=== PATIENT | female | born 1990 | race Caucasian/White ===

== ENCOUNTER 2021-09-26 10:15 | Emergency (ER) | payer BC, SELFPAY ==
[2021-09-26 10:21] VITALS: BP 130/84; PULSE 73; RESP 12; TEMP 36.4; O2SAT 100
--- NOTE | 2021-09-26 10:26 | ED.FEMALEGU ---
HPI - Female Genitourinary General Chief complaint: Urogenital-Female Stated complaint: Urinary pain Source: patient and RN notes reviewed Mode of arrival: ambulatory Limitations: no limitations History of Present Illness HPI Narrative: 31 y/o female presented for complaint of UTI symptoms over the past 5 days. She endorses dysuria, frequency, urgency, and hematuria. She also endorses constant pressure. She has not taken anything for symptoms. She endorses a history of UTIs for which she was taking daily nitrofurantoin. Since having kids in the last 3 years to UTIs decreased, however she has had 2 in the last 4 months again. Denies nausea, vomiting, diarrhea, flank pain, fever or chills. Related Data Home Medications Medication Instructions Recorded Confirmed levothyroxine 50 mcg PO DAILY 09/26/21 09/26/21 Allergies Allergy/AdvReac Type Severity Reaction Status Date / Time No Known Allergies Allergy Verified 09/26/21 10:24 Review of Systems Review of Systems: CONSTITUTIONAL: Denies body aches, fever, chills, or sweats. CARDIOVASCULAR: Denies chest pain, palpitations, or edema. RESPIRATORY: Denies cough or dyspnea. GASTROINTESTINAL: Denies abdominal pain, nausea, vomiting, or diarrhea. GENITOURINARY: Reports dysuria, frequency, urgency, hematuria, denies flank pain SKIN: Denies rash, itching, or wounds. MUSCULOSKELETAL: Denies back pain or myalgia. [facility] Social History Social History Gender identity (if verbalized by the patient): Female Comments At time of signature, I have reviewed and agree with nursing past medical, surgical, social and family history unless otherwise noted. Please see nursing chart for further information. There is no relevant family history pertinent to the presenting complaint Exam Narrative: GENERAL: Well-appearing and in no acute distress. HEAD: Normocephalic EYES: EOMI. . ENT: Mucous membranes pink and moist. NECK: Normal AROM. Supple. CHEST: No respiratory distress. Clear to auscultation. HEART: Regular rate and rhythm. ABDOMEN: Soft, nontender, nondistended, normal active bowel sounds. No CVA tenderness MUSCULOSKELETAL: No bony tenderness. SKIN: Warm, dry, no rash. NEURO: No focal deficits. Alert and oriented x3. Gait steady. PSYCH: Normal affect. No signs of depression or anxiety. Course Course Emergency Course: Patient is aware of diagnosis, understands and agrees to treatment plan. Anticipatory guidance given. Patient agrees to follow-up as directed and is aware of reasons to seek care at the emergency department. Portions of this record may have been created with voice recognition software Level of Care: Express Care Visit Vital Signs Vital signs: Reviewed MDM - Female Genitourinary MDM Narrative Medical decision making narrative: Urine shows hematuria; no acute concerns on exam findings. She states with her history of UTIs Macrobid worked well for her in the past. Declines Pyridium. She plans to follow-up with her [facility] [employer] [employer]. Patient is non-toxic appearing and is in no distress. Appropriate for treatment of UTI as outpt. Differential Diagnosis Differential diagnosis: Likely urinary tract infection, cervicitis and cystitis Lab Data Attestation: I reviewed the patient's lab results. Discharge Plan Discharge Clinical Impression: Dysuria Patient Disposition: Home, Self-Care Condition: Stable Instructions: Antibiotic Form Additional Instructions: Take the antibiotic as prescribed until gone. Drink plenty of water The urine will be sent of for a culture to identify what type of bacteria is causing your infection. If the culture shows that the antibiotic will not get rid of your infection, you will be notified and a new antibiotic will be called in for you. you will need to follow up with your PCP for further evaluation and treatment if symptoms persist. Follow-up with your [facility] [employer]
== END 2021-09-26 10:40 | disposition home or self-care (01) ==
PROVIDERS: Emergency Provider Nurse Practitioner Family; PCP Nurse Practitioner
DX: R30.0 Dysuria (principal); E05.90 Thyrotoxicosis, unspecified without thyrotoxic crisis or storm
CPT/HCPCS: 81003; 87086; 99213; G0463

== ENCOUNTER 2021-10-10 10:19 | Emergency (ER) | payer BC, SELFPAY ==
[2021-10-10 10:28] VITALS: BP 125/73; PULSE 79; RESP 16; TEMP 36.6; O2SAT 97
--- NOTE | 2021-10-10 10:36 | ED.URI ---
HPI - URI/Sore Throat General Chief Complaint: Upper Respiratory Infection Stated Complaint: sinus congestion Time Seen by Provider: 10/10/21 10:36 Source: patient, RN notes reviewed and old records reviewed Mode of arrival: ambulatory Limitations: no limitations History of Present Illness HPI Narrative: 31 year old female accompanied by 2 young children presents to express care with complaints of 4 week duration of sinus congestion and drainage and some cough. She states that her symptoms seemed to get better for a few days and then have progressively gotten worse. Patient reports that she has been taking Mucinex and also has tried antihistamines with no improvement in her symptoms. Patient reports no ear pain, states pain to facial sinus regions especially on the right. She states that her nasal discharge has become yellow in color and thicker in consistency. Patient denies any shortness of breath or any wheezing, cough is intermittent and dry. Patient states that she has had COVID vaccinations and also flu shot this season, reports she has taken home COVID tests which have been negative. MD elicited complaint: rhinorrhea, nasal congestion and sinus pain Onset (ago): week(s) (4) Consistency: progressively worsening Description of mucous: yellow Able to tolerate fluids by mouth: Yes Treatments prior to arrival: other (mucinex and antihistamine) Related Data Home Medications Medication Instructions Recorded Confirmed levothyroxine 50 mcg PO DAILY 09/26/21 09/26/21 Allergies Allergy/AdvReac Type Severity Reaction Status Date / Time No Known Allergies Allergy Verified 09/26/21 10:24 Review of Systems Review of Systems: CONSTITUTIONAL: Denies fever, chills, or sweats. EYES: Denies visual changes, redness, or discharge. ENT: Positive for rhinorrhea, congestion, no sore throat, no otalgia, positive for facial pressure CARDIOVASCULAR: Denies chest pain, palpitations, or edema. RESPIRATORY: Positive for dry cough denies dyspnea. GASTROINTESTINAL: Denies abdominal pain, nausea, vomiting, or diarrhea. GENITOURINARY: Denies dysuria or hematuria. SKIN: Denies rash or itching. MUSCULOSKELETAL: Denies back pain, joint pain, or myalgia. NEUROLOGIC: Denies headache, numbness, or weakness. PSYCHIATRIC: Denies anxiety or depression. All systems reviewed & are unremarkable except as noted in HPI and below PMFSH Past Medical History Medical History (Updated 10/10/21 @ 10:48 by Brittnee Dowell NP) Hypothyroid Surgical History Surgical History (Updated 10/10/21 @ 10:47 by Brittnee Dowell NP) History of tonsillectomy Social History Social History (Updated 10/10/21 @ 10:47 by Brittnee Dowell NP) Smoking status: Never smoker Alcohol intake: current Alcohol use details: social Substance use: never Living arrangements: with family Gender identity (if verbalized by the patient): Female Comments At time of signature, agree with nursing past medical, surgical, social and family history. There is no relevant family history pertinent to the presenting complaint Exam Narrative: GENERAL: Well-appearing, well-nourished, and in no acute distress. HEAD: Normocephalic, atraumatic. EYES: PERRLA and EOMI. ENT: Nares red and turbinates swollen light yellow rhinorrhea no epistaxis. Mucous membranes moist.TM's normal with dull light reflex, throat red with no lesions or exudates, tonsils absent, post nasal drainage present NECK: Supple.no lymphadenopathy CHEST: Clear to auscultation. No respiratory distress.SAO2 97% on room air, no tachypnea or accessory muscle use HEART: Regular rate and rhythm. No murmur heard. Normal peripheral pulses. ABDOMEN: Soft, nontender, nondistended, normal active bowel sounds. EXTREMITIES: Normal range of motion. No edema. SKIN: Warm, dry, no rash. NEURO: No focal deficits. Alert and oriented x3. Course Course Level of Care: Express Care Visit Vital Signs Vital signs: Vital Signs
== END 2021-10-10 10:54 | disposition home or self-care (01) ==
PROVIDERS: Emergency Provider Registered Nurse; PCP Obstetrics & Gynecology Gynecology
DX: J01.40 Acute pansinusitis, unspecified (principal); E03.9 Hypothyroidism, unspecified
CPT/HCPCS: 99213; G0463

== ENCOUNTER → 2022-01-09 12:39 | Outpatient (CLI) | payer BC, SELFPAY ==
--- NOTE | ~2022-01-09 | US_ITS ---
EXAMINATION: US OB <= 14 weeks fetus INDICATION: N91.2 - Amenorrhea, unspecified . Dating. TECHNIQUE: Sonography of the pelvis was performed by transabdominal and transvaginal techniques. COMPARISON: None. RESULT: LMP 11/20/2021. Gestational age by LMP 7 weeks 1 day. OSCAR by LMP 08/27/2021. Uterus: - Orientation: Anteverted - Size: 7.6 x 5.7 x 5.8 cm - Myometrium: homogeneous echogenicity Gestation: - Intrauterine gestational sac: Single present - Mean Sac Diameter: cm, corresponding gestational age week days - Yolk sac: Present. - Embryo: Single present - Steen rump length: 0.8 cm, corresponding gestational age 6 weeks, 5 days -Gestational heart rate: present 141 bpm -Subgestational hematoma: Absent Right ovary: Not visualized. No adnexal abnormality. Left ovary: Not visualized. No adnexal abnormality. Pelvis free fluid: None. IMPRESSION: Single, live intrauterine gestation. Estimated Gestational Age: 6 weeks, 5 days by crown rump length. OSCAR by ultrasound 08/27/2022. Reviewed, dictated and finalized at location K. IMPRESSION: Single, live intrauterine gestation. Estimated Gestational Age: 6 weeks, 5 days by crown rump length. OSCAR by ultras ound 08/27/2022.
== END ==
PROVIDERS: PCP Student in an Organized Health Care Education/Training Program; Visit Provider Student in an Organized Health Care Education/Training Program
DX: Z34.91 Encounter for supervision of normal pregnancy, unspecified, first trimester (principal); Z3A.01 Less than 8 weeks gestation of pregnancy
CPT/HCPCS: 76801

== ENCOUNTER 2022-08-10 14:42 | Outpatient (RCR) | payer BC, SELFPAY ==
[2022-08-10 15:25] VITALS: BP 118/72; PULSE 83
== END 2022-09-09 19:44 | disposition home or self-care (01) ==
LOC: ANHOBOP 14:42
PROVIDERS: Visit Provider Obstetrics & Gynecology
DX: O36.8330 Maternal care for abnormalities of the fetal heart rate or rhythm, third trimester, not applicable or unspecified (principal); Z3A.37 37 weeks gestation of pregnancy
CPT/HCPCS: 59025

== ENCOUNTER 2022-08-19 20:32 | Outpatient (CLI) | payer BC, SELFPAY ==
[2022-08-19 21:02] VITALS: BP 130/83; PULSE 72
[2022-08-19 21:23] VITALS: BP 130/83; PULSE 71
== END 2022-08-19 21:15 | disposition home or self-care (01) ==
LOC: ANHOBOP 20:35 → ANHLDR 08-29 06:23
PROVIDERS: Visit Provider Obstetrics & Gynecology
DX: O36.8910 Maternal care for other specified fetal problems, first trimester, not applicable or unspecified (principal); Z3A.00 Weeks of gestation of pregnancy not specified
CPT/HCPCS: 59025; 99199

== ENCOUNTER 2022-08-20 08:13 | Inpatient (IN) | payer BC, SELFPAY ==
[2022-08-20] VITALS (53 sets, daily range): BP systolic 45–152; BP diastolic 19–107; PULSE 69–133; RESP 16–18; TEMP 36.2–37.1; O2SAT 99–100; BMI 28.0
--- NOTE | 2022-08-20 09:06 | WPDANESEPP ---
Anes - Eval Pre Procedure Procedure: Labor Pain Management Date/Time: 08/20/22 09:06 Surgeon: Xochitl Preop Diagnosis: Pain during labor Pre Op Diagnosis: Labor Patient Data Age: 32 Gender: F Height: Weight: Allergies Allergy/AdvReac Type Severity Reaction Status Date / Time No Known Allergies Allergy Verified 08/17/22 12:40 Home Medications Medication Instructions Recorded Confirmed Type levothyroxine 50 mcg tablet 50 mcg PO DAILY 09/26/21 08/10/22 History prenat.vits,allison,[id number] 1 tablet PO HS 08/03/22 08/10/22 History Patient hx anesthesia problems: none Family hx anesthesia problems: none Results Review: All pre-operative results and documents have been reviewed as part of the pre-operative evaluation. 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
[2022-08-20 09:12] LABS: Basophils Percent Auto 0.2 % (0.2-1.2); Eosinophils Absolute Auto 0.1 K/mm3 (0-0.3); Eosinophils Percent Auto 0.6 % (0-4.4); Hematocrit 37.8 % (37.0-47.0); Hemoglobin 13.3 g/dL (12.0-15.0); Immature Granulocyte Absolute 0.05 K/mm3 (0.00-0.031); Immature Granulocyte Percent A 0.6 % (0-0.5); Lymphocytes Absolute Auto 1.44 K/mm3 (0.9-3.2); Lymphocytes Percent Auto 16.3 % (18.3-44.2); Mean Corpuscular HGB Conc 35.2 g/dl (32-36); Mean Corpuscular Hemoglobin 31.9 pg (26-34); Mean Corpuscular Volume 90.6 fl (80-100); Mean Platelet Volume 10.7 fl (7.4-10.4); Monocytes Absolute Auto 0.4 K/mm3 (0.1-0.6); Monocytes Percent Auto 4.8 % (2.6-8.5); Neutrophils Absolute Auto 6.9 K/mm3 (1.3-6.7); Neutrophils Percent Auto 77.5 % (45.5-73.1); Platelet Count Result 232 k/mm3 (150-375); Red Blood Count 4.17 M/mm3 (4.2-5.4); Red Cell Distribution Width 12.8 % (11.5-14.5); White Blood Count 8.8 K/mm3 (4.5-10.0)
[2022-08-20] MEDS: LACTATED RINGERS 1,000 ML 125 ML IV CONT ×2 (09:21→10:08)
--- NOTE | 2022-08-20 09:25 | LDADM ---
This patient, Gerson Rich, was admitted to Labor/Delivery/Recovery 105 on 08/20/22 at 08:13. Plans for labor, pain management and were discussed with patient. Patient/family oriented to hospital policies and general routines including ID bracelet, bed and alarms, visiting hours, pain management, procedures, bathroom and other care routines, personal items, smoking policy, room service/diet and guest tray routines, security routines, and visiting hours. Patient/Family are encouraged to report perceived risks to care and to ask questions if they do not understand what they are told or what they should do. See OBIX for further documentation.
[2022-08-20] MEDS: OXYTOCIN 30 UNITS/NS 500 ML 30 UNITS/500 ML BAG 999 UNITS IV CONT (14:39)
--- NOTE | 2022-08-20 14:42 | PM.IMHP ---
H&P: HPI History of Present Illness Date/Time: 08/20/22 14:42 Chief Complaint: Contractions Narrative: She is a at 39 weeks by LMP with an EDC of 08/27/22 c/w 6 week ultrasound. PNC significant for hypothyroidism, stable on medication. She presented with contractions regular at approximately 7. She had changed her cervix to 4 from the previous evening. She was admitted for labor. Labs reviewed. GBS neg. Review of Systems Review of Systems: All systems reviewed & are unremarkable except as noted in HPI and below Constitutional: Constitutional: Reports no additional constitutional complaints and Denies headache(s) Eyes: Eyes: Denies spots in vision ENT: Reports system reviewed and no additional complaints, except as documented and Denies headache(s) Cardiovascular: Cardiovascular: Denies chest pain and Denies dyspnea Respiratory: Respiratory: Denies dyspnea Gastrointestinal: Gastrointestinal: Reports no additional gastrointestinal complaints Genitourinary: Genitourinary: Reports amenorrhea Musculoskeletal: Musculoskeletal: Reports no additional musculoskeletal complaints Integumentary/Breasts: Skin/Breast: Denies breast mass and Denies rash Neurologic: Denies headache(s) Psychiatric: Psychiatric: Reports no additional psychiatric complaints [facility] Past Medical History 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 Hypothyroid Pain during labor Surgical History Surgical History History of colposcopy History of tonsillectomy Family History Family History Sibling Depression Anxiety Mother Disorder of thyroid Social History Social History Smoking status: Never smoker Alcohol intake: former Alcohol use details: social Substance use: never Lack of Transportation: No Lack of Food: Never True Current Housing: I Have Housing Concerned About Future Housing: No Difficulty Paying Gas/Electric Bills: No Difficulty Paying for Meds: No Currently Unemployed: No Education: Bachelor's Degree Difficulty w/ Childcare or Family Care: No Living arrangements: with family Gender identity (if verbalized by the patient): Female Spiritual care concerns: No Meds Home Medications and Allergies Home Medications Medication Instructions Recorded Confirmed Type levothyroxine 50 mcg tablet 50 mcg PO DAILY 09/26/21 08/20/22 History prenat.vits,allison,[id number] 1 tablet PO HS 08/03/22 08/20/22 History Allergies Allergy/AdvReac Type Severity Reaction Status Date / Time No Known Allergies Allergy Verified 08/17/22 12:40 Vital Signs Vital Signs - 24 hr 08/20/22 09:23 08/20/22 09:31 08/20/22 09:51 Temperature Pulse Rate 91 Blood Pressure 128/79 Pulse Oximetry 99 Oxygen Delivery Room Air 08/20/22 09:57 08/20/22 09:58 08/20/22 09:59 Temperature Pulse Rate 79 75 Blood Pressure 122/77 115/77 Pulse Oximetry 100 Oxygen Delivery 08/20/22 10:01 08/20/22 10:02 08/20/22 10:05 Temperature Pulse Rate 82 83 Blood Pressure 123/78 132/64 Pulse Oximetry 100 Oxygen Delivery 08/20/22 10:06 08/20/22 10:07 08/20/22 10:09 Temperature Pulse Rate 84 82 89 Blood Pressure 120/68 120/64 126/65 Pulse Oximetry 99 Oxygen Delivery 08/20/22 10:10 08/20/22 10:10 08/20/22 10:11 Temperature Pulse Rate 84 Blood Pressure 119/66 Pulse Oximetry 100 100 99 Oxygen Delivery 08/20/22 10:13 08/20/22 10:15 08/20/22 10:16 Temperature Pulse Rate 89 83 Blood Pressure 152/107 H 112/64 Pulse Oximetry 100 Oxygen Delivery 08/20/22 10:17 08/20/22 09:00 08/20/22 10:19 Temperature 98.2 F Pulse Rate 80 77 Blood Pressure 113/61 116/65 Pulse Oximetry
--- NOTE | 2022-08-20 14:50 | PM.OBPNLAB ---
Pain Control Date/time seen: 08/20/22 14:50 Comments: FHT 125-130 Cat 2 AROM forebag clear. C/C/+1.
--- NOTE | 2022-08-20 15:15 | PM.OBPRVD ---
OB - Delivery Note Procedure Delivery date: 08/20/22 Procedure: Spontaneous vaginal delivery Events: Other (Hypothyroidism) Induction method: None Delivery monitor: External FHT Route of delivery: Laceration Description: Perineal - 1st Degree and Labial (right upper) Delivery repair: vicryl (3.0 vicryl) Specimen: No Quantitative Blood Loss (ml): 150 Anesthesia type: Epidural Disposition: Floor Complications: None Baby Date of : 08/20/22 Time of : 14:55 Weeks of gestation at delivery: 39 gender: Male Weight (pounds): 7 Weight (ounces): 10 presentation: vertex position: Left Occiput Anterior Placenta delivery description: Spontaneous Cord Vessel Description: 3 Vessels, Clamped/Cut and Delayed Cord Clamping score one minute: 9 score five minutes: 9 AMG Delivery Billing Delivery Delivery: Delivery Charge
[2022-08-20] MEDS: OXYTOCIN 30 UNITS/NS 500 ML 30 UNITS/500 ML BAG 125 UNITS IV CONT (15:34)
[2022-08-20] MEDS: WITCH HAZEL 40 PADS 1 PAD TOPICAL (15:34)
[2022-08-20] MEDS: BENZOCAINE 20% AER SPR (*SP) 56 GM CAN 1 SPRAY TOPICAL (15:35)
--- NOTE | 2022-08-20 20:26 | OBPPTRN ---
08/20/2022 at 1910 Patient transferred to first floor post room #111. Support person present. Patient and significant other oriented to unit, room, information board, rooming in, admission packet and security measures. Parents verbalizes understanding.
[2022-08-20] MEDS: IBUPROFEN 600 MG TABLET PO (21:30)
[2022-08-21 03:55] VITALS: BP 121/79; PULSE 79; RESP 16; TEMP 36.2
[2022-08-21 04:19] LABS: Hematocrit 35.7 % (37.0-47.0); Hemoglobin 12.3 g/dL (12.0-15.0)
[2022-08-21 08:30] VITALS: BP 136/63; PULSE 80; PULSE 95; RESP 16; RESP 18; TEMP 36.5; O2SAT 97; O2SAT 98
[2022-08-21] MEDS: DOCUSATE SODIUM 100 MG CAPSULE PO (08:30)
[2022-08-21] MEDS: LEVOTHYROXINE SODIUM 50 MCG TABLET PO (08:30)
[2022-08-21] MEDS: IBUPROFEN 600 MG TABLET PO (09:40)
--- NOTE | 2022-08-21 11:38 | PC.NURSE ---
1030 - Primary RN reported that mother does not request assistance with at this time and is independently .
[2022-08-21 12:15] VITALS: BP 119/70; PULSE 80; RESP 16; TEMP 37; O2SAT 98
[2022-08-21 12:19] LABS: Rapid Plasma Reagin Non-Reactive (NonReactive)
[2022-08-21 12:31] VITALS: PULSE 80; RESP 16; O2SAT 98
--- NOTE | 2022-08-21 16:59 | PC.NURSE ---
Patient was given the opportunity to view the discharge video Mother & Baby Care, The First Two Weeks and to ask questions. Patient declined viewing the video and has been given the mother/baby guide for home reference.
--- NOTE | 2022-08-23 11:07 | PM.OBDSVD ---
DS: Admitting Diagnosis Discharge Date 08/21/22 Admitting Diagnosis Labor DS: Discharge Diagnosis Discharge Diagnosis Plan Intrauterine delivered OB - DS: Summary Hospital Course Hospital Course: She was admitted in labor. She had an uncomplicated vaginal delivery. She did well . Baby did well . She was ambulating, had adequate pain control and was discharged to home on day 1. OB Procedures : Ultrasound OB Procedures Intrapartum: Spontaneous Vag Delivery OB Procedures: : None Peripartum Data Delivery Method: Natural Vaginal Laceration Description: Perineal - 1st Degree complications: none Status at Discharge Functional status at discharge: independent ambulation Time Spent with Patient Time attestation: Total time spent providing and/or coordinating discharge services: Exam Const: General: cooperative Orientation/consciousness: oriented to person, oriented to place and oriented to time HENMT: Face/Nose/Sinus: Normal external nose present Eyes: General: appearance normal, both eyes and all related structures Resp: Effort & Inspection: normal respiratory effort GI: Inspection: normal to inspection Skin: General skin exam: normal color Neuro: General: oriented to person, oriented to place and oriented to time Extrem: General: normal to inspection and no calf tenderness Psych: Appearance: grossly normal Mental Status: mental status grossly normal Discharge Plan Discharge Attending physician on discharge: He Leung Consulting providers: Christen Pollock Discharging Clinician: He Leung Anticipated Discharge Date/Time: 08/21/22 16:23 Patient Disposition: Home, Self-Care Activity: may shower and pelvic rest Diet: regular Discharge Instructions: Education: Mom and Baby Guide Given to: Mother Follow-Up: Call your delivering provider's office for an appointment to be seen in: 4-6 Weeks Mom and baby should come to the [facility] for the follow-up appointment. Appointment Date/Time: August 22, 2022 at 10:00 am What to expect at your follow-up visit: Blood Pressure Check Physical Assessment Call [phone] if you are unable to keep your appointment time. BREAST CARE: * Wear a snug supportive bra. * For engorgement discomfort: Breast Feeding: * Apply warm moist washcloths * Express milk as needed to relieve engorgement * Wear loose clothing * For sore nipples: * Identify correct latch-on * Apply warm moist washcloths before and after nursing * Air dry nipples after nursing * May apply Lansinoh cream to nipples EPISIOTOMY/PERINEAL CARE: * Until bleeding stops, use your eliel bottle after urinating * Change your pad frequently throughout the day * You may take sitz baths several times a day (fill your bathtub with warm water and soak for 20 minutes.) Do NOT bathe in the water * No tub baths until seen by your physician - You may shower ACTIVITY: * Rest as much as possible. * Do not exercise or lift anything heavier than your baby (such as laundry or other children.) * Avoid stairs or driving as much as possible. * Do not put anything into the vagina. No douching, tampons, or sexual activity until seen by physician. NOTIFY PHYSICIAN IF YOU HAVE ANY QUESTIONS OR IF ANY OF THE FOLLOWING SYMPTOMS OCCUR: * If your vaginal delivery becomes red, swollen, or more painful than what you have experienced in the hospital. * If your vaginal bleeding becomes foul smelling. * If your vaginal bleeding becomes more heavy than a period or if your bleeding changes from pink to bright red. However, you may pass an occasional walnut-sized clot once or twice for the first week . * If you experience a sharp, shooting pain in your calves. * If you discover a hard, reddened area on your breast or
[2022-08-23 11:28] VITALS: BP 133/80; PULSE 87; RESP 18; TEMP 36.9; O2SAT 97
== END 2022-08-21 17:56 | disposition home or self-care (01) | DRG 807 ==
LOC: ANHLDR 08:53 → ANHOBPP 20:38 → ANHOB2 08-21 08:34
PROVIDERS: Admitting Provider Obstetrics & Gynecology; Visit Provider Obstetrics & Gynecology
DX: O99.284 Endocrine, nutritional and metabolic diseases complicating childbirth (principal); Z37.0 Single live birth; Z3A.39 39 weeks gestation of pregnancy; E03.9 Hypothyroidism, unspecified; E06.3 Autoimmune thyroiditis; O70.0 First degree perineal laceration during delivery
CPT/HCPCS: 36415; 85014; 85018; 85025; 86592; 86850; 86900; 86901; A9270; J2590; J2795; J7120

== ENCOUNTER 2024-07-15 11:27 | Outpatient (CLI) | payer BC, SELFPAY ==
--- NOTE | ~2024-07-15 | US_ITS ---
EXAMINATION: US OB <= 14 weeks fetus DATE: 07/15/2024 11:43 INDICATION: Amenorrhea. First trimester . TECHNIQUE: Real-time pelvic ultrasound utilizing both a transvaginal and transabdominal probe was pe rformed. The interpreting radiologist was not present for the study. COMPARISON: None. FINDINGS: The uterus measures 9.7 x 8.2 x 8.0 cm. There is an intrauterine gestational sac. A yolk sac and fet al pole are identified. The crown rump length measures 2.5 cm, which correlates with an estimated ges tational age of 9 weeks and 2 days. heart motion is identified measuring 173 beats per minute ( bpm) by M-mode Doppler. The bilateral ovaries are not visualized. There is no free fluid in the pelvi s. IMPRESSION: 1. Single living fetus with heart rate of 173 bpm. 2. Gestational age by ultrasound of 9 weeks 2 day(s) +/- 6 day(s) with ultrasound estimated date of delivery (OSCAR) of 02/15/2025. Reviewed, dictated and finalized at location A. TROLYSIS NEEDLE OPERATOR IMPRESSION: 1. Single living fetus with heart rate of 173 bpm. 2. Gestational age by ultrasound of 9 weeks 2 day(s) +/- 6 day(s) with ultraso und estimated date of delivery (OSCAR) of 02/15/2025.
== END 2024-07-15 11:28 | disposition home or self-care (01) ==
PROVIDERS: PCP Obstetrics & Gynecology; Visit Provider Nurse Practitioner Obstetrics & Gynecology
DX: N91.2 Amenorrhea, unspecified (principal)
CPT/HCPCS: 76801

== ENCOUNTER 2025-01-16 13:11 | Outpatient (RCR) | payer BC, SELFPAY ==
[2025-01-08 17:14] VITALS: BP 114/61; PULSE 85
--- NOTE | ~2025-01-16 | US_ITS ---
EXAMINATION: US OB limited w BPP DATE: 01/08/2025 16:33 INDICATION: placenta check, BPP, 3rd trimester bleeding . TECHNIQUE: Real-time ultrasound of the pelvis was performed. COMPARISON: None. FINDINGS: There is a single living fetus in vertex presentation, longitudinal lie. The placenta is posterior a nd fundal and is well distant from the cervix. Cervix partially obscured. heart rate is 145 bpm . The amniotic fluid index is 10.6 cm, which is normal (5th to 95th percentile is 8.1 to 24.8 cm). Um bilical cord noted posterior to the baby's neck, anterior portions of the cord could not be visualize d due to anatomic shadowing. Biophysical profile performed by the technologist: breathing (30 sec sustained breathing in 30 minutes): 2 out of 2. movement (3 gross body movements in 30 minutes: 2 out of 2. tone (one episode of gedjthr-llcmxihlg-igyvowx limb movement): 2 out of 2. Amniotic fluid pocket (2 cm): 2 out of 2. Total score: 8 out of 8. IMPRESSION: Single living fetus in vertex presentation. Biophysical profile 8 out of 8. Question of nuchal cord, recommend close attention on follow-up sonography or at delivery. Reviewed, dictated and finalized at location K. IMPRESSION: Single living fetus in vertex presentation. Biophysical profile 8 out of 8. Question of nuchal cord, recommend close attention on follow-up sonography or a t delivery.
--- NOTE | ~2025-01-16 | US_ITS ---
EXAM EXAMINATION: US OB limited DATE: 01/16/2025 15:03 CDT INDICATION: Advanced maternal age, evaluate nuchal cord and JESSICA COMPARISON: 01/08/2025 TECHNIQUE: Real-time transabdominal obstetric ultrasound. FINDINGS: 4 para 3 There is a single intrauterine gestation in vertex presentation. The placenta is anterior. cardiac activity and movement is noted with a heart rate of 143 beats per minute. Amniotic fluid index measures 10.5 cm The nuchal cord appears posterior to the neck on the submitted images. IMPRESSION: Single intrauterine gestation in vertex presentation with cardiac activity identified. The nuchal cord appears posterior to the neck on the submitted images. JESSICA within normal limits, measuring 10.5 cm. Reviewed, dictated and finalized at location A. IMPRESSION: Single intrauterine gestation in vertex presentation with cardiac activit y identified. The nuchal cord appears posterior to the neck on the submitted images. JESSICA within normal limits, measuring 10.5 cm.
[2025-01-16 14:15] VITALS: BP 122/65; PULSE 87
== END 2025-02-19 13:36 | disposition other institution (70) ==
LOC: ANHOBOP 13:11
PROVIDERS: Visit Provider Obstetrics & Gynecology
DX: O36.8190 Decreased fetal movements, unspecified trimester, not applicable or unspecified (principal); Z3A.34 34 weeks gestation of pregnancy; O09.513 Supervision of elderly primigravida, third trimester; O36.8930 Maternal care for other specified fetal problems, third trimester, not applicable or unspecified; Z3A.35 35 weeks gestation of pregnancy
CPT/HCPCS: 59025; 76815; 76819

== ENCOUNTER 2025-02-01 13:45 | Inpatient (IN) | payer BC, SELFPAY ==
[2025-02-01] VITALS (24 sets, daily range): BP systolic 123–145; BP diastolic 62–92; PULSE 31–268; TEMP 36.3–36.6; O2SAT 73–100; BMI 27.7
--- OUTSIDE RECORDS SUMMARY | 2025-02-01 14:14 | XMS_ITS | Clinical Summary ---
Author Organization [facility] Address [address] [place] [phone] Phone Care Team Providers Care Seo Manager Name Role Phone Unavailable Primary Care Provider Unavailabl e Social History Tobacco Use Types Packs/Day Years Used Date Smoking Tobacco: Never Assessed Comments Unknown Sex and Gender Information Value Date Recorded Sex Assigned at Not on file Legal Sex Female 4:16 PM CDT Gender Identity Not on file Sexual Orientation Not on file Plan of Treatment Health Maintenance Due Date Last Done Comments HPV VACCINES (1 - 3-dose series) 2004 HEPATITIS B VACCINES (1 of 3 - 19+ 3-dose series) 2008 HPV/Cotest (21-29) 2010 CERVICAL CANCER SCREENING 2019 HPV/Cotest (30-65) 2019 PAP SMEAR 2019 INFLUENZA VACCINE (#1) 2025 03/21/2018 DTAP/TDAP/TD VACCINES (4 - T d or Tdap) 11/05/2029 11/06/2019, 07/02/2018, 04/04/2018 Insurance [facility] BLUE ACCESS CHOICE
--- OUTSIDE RECORDS SUMMARY | 2025-02-01 14:14 | XMS_ITS | Clinical Summary ---
Author Organization [facility] Address [address] [place] [address] Care Team Providers Care Tourist Escort Name Role Phone Unavailable Primary Care Provider Unavailabl e Source Comments [facility],non-owned Affiliates and Associated Physician Practices is amultiple site organization consisting of ambulatory clinics and hospital sitesin [place], [place], [place] and [place]. This disclosure is being madepursuant to the Care Everywhere program and may not contain all information available regarding this patient. Last updated 18.[facility] Allergies No known active allergies Medications * Be aware that medications may not be up to date on this document. Alwaysverify current medications with the patient. Vit-Fe Fumarate-FA ( VITAMIN) 27-0.8 MG tablet Take 1 tablet by mouth once daily Active levothyroxine (Synthroid) 50 MCG tablet TAKE 1 (ONE) TABLET BY MOUTH DAILY BEFORE BREAKFAST 90 tablet 2 Active Active Problems Problem Noted Date Diagnosed Date EDDA II (cervical intraepithelial neoplasia II) 0 08/09/2021 Dysplasia of cervix, high grade EDDA 2 01/17/2021 Overview (06/08/2021): Plan 6 mo colpo + pap 06/14 edda I at 12 edda 1-2 at 4-6 oclock 05/15 lsil pos hpv neg 16/18/45 03/08/21 cervical bx: benign ECC benign 01/12 cervical biopsy scant endocervical cells, nondiagnostic, ECC neg 10/13/20 cervical biopsy EDDA II, ECC minute fragment of dysplastic epithelium, favor high grade dysplasia 09/12 lsil pos hpv 01/10 cervical biopsy 12,6 oclock EDDA I, Ecc: benign 10/11 cervical biopsy: small focus of lsil, ECC benign 09/10 pap: lsil cannot exclude a high grade lesion 10/10 nilm 03/11 ascus neg hpv Subclinical hypothyroidism 01/29/2019 Healthcare maintenance 12/23/2018 Overview (05/09/2021): Health Maintenance: Female Vitals: 12/23/18 1409 BP: 101/67 Pulse: 88 Resp: 18 Temp: 97.6 F (36.4 C) Diet - balanced Physical activity - 3-4 times weekly Obesity: Body mass index is 22.5 kg/m . Counseled on health risks of obesity and provided resources for weight management. Cardiovascular disease Aspirin: Consider if CAD risk 3% or greater Hyperlipidemia: Age 17-21 one time With risk factor W>35 Without risk factor W>45 No results found for: EXCHOLEST, EXTRIG, EXHDL, EXLDL, CHOL, TRIG, HDLC, LDLC, NHDL Diabetes mellitus: With HTN or HL Age 40-70 and BMI>25 No results found for: HA1C Cancer Breast cancer: >40 every two years Stop at 10 year life expectancy Cervical cancer: Age 21-29 every 3 years Age >30 every 3 years or PAP + HPV testing every five years Stop at 65 if last 3 normal, hysterectomy for benign indication Colorectal cancer: Age >50 (annual FOBT, colonoscopy q 10 years, flex sig q 5 years) Stop at life expectancy 5 years Lung cancer: Age 55-74, with >30 pack year history, and currently smoking OR quit in last 15 years Immunizations Flu shot annually Tdap at least once Td every 10 years - 2019 HPV until age 26 Zoster age >50 Pneumonia and meningitis if risk factors Pnemonia PCV13 at 65, PPSV23 6-12 months later Revaccinate PPSV23 once after 65 if first done before 65 and 5 years have passed Hepatitis B if risk factors Immunization History Administered Date(s) Administered Tdap (adacel) Age 11-67 Im Inj 07/02/2018 Sexually transmitted/blood borne infections Chlamydia under 25 or increased risk Gonorrhea increased risk Hepatitis C born between 1945-65 HIV one time Syphilis increased risk Osteoporosis Postmenopausal <65 with risk factors >65 Calcium 1200 mg (diet and supplements) and vitamin D 800 IU Vision/dental Eye exam - 2019 Dental exam - 2019 * PATIENT EDUCATION: Safe Sex, Calcium, Seatbelts, Helmets, Sunscreen, Smoke Detectors, Dentist, Gun Safety, No drinking and driving, Drug avoidance; Good LifeStyle: Eat well, Exercise Hair 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 Diagnosed in 2019 Estimated Date of Delivery Comme nts Yes 02/15/2025 Based on last me nstrual period of 05/11/2024 Resolved Problems Problem Noted Date Diagnosed Date Resolved Date Cervical high risk human pap illomavirus (HPV) DNA test positive 10/20/2020 05/09/2021 LGSIL on Pap smear of cervix 10/01/2018 05/09/2021 Encounters Date Type Department Care Team Description 12/30/2024 9:00 AM CDT - 12/30/2024 11:59 PM CDT Hospital Encounter [facility] [address] [place], [place] [id number] Al Douglas MD Discharge Disposition: Home or Self Care from Last 3 Months Immunizations Immunization Administration Dates Next Due FLU, HISTORIC VACCINE 06/02/2019 INFLUENZA VACCINE, QUADR. (F LUZONE; FLULAVAL; FLUARIX; AFLURIA QUADRIVALENT; 6MO+), 0.5 ML (IIV4) 03/21/2018 INFLUENZA VACCINE, TRIV. (FL UZONE; FLULAVAL; FLUARIX; AFLURIA TRIVALENT; 6MO+), 0.5 ML (IIV3) 03/14/2024 TDAP (7yrs+) 11/06/2019,07/02/2018,04/04/2018 Family History Medical History Relation Name Comments Cancer - Breast Maternal Grandmother Thyroid Disease Mother hypothyroidi sm. Cancer - Breast Paternal Grandmother Relation Name Status Comments Father Alive Maternal Grandmother Mother Alive Paternal Grandmother Social History Tobacco Use Types Packs/Day Years Used Date Smoking Tobacco: Never Smokeless Tobacco: Never Alcohol Use Standard Drinks/Week Comments Yes 0 (1 standard drink = 0.6 oz pur e alcohol) AUDIT-C Answer Date Recorded Q1: How often do you have a drink containing alc ohol? Monthly or less 09/20/2021 Q2: How many drinks containi ng alcohol do you have on a typical day when you are drinking? 1 or 2 09/20/2021 Q3: How often do you have si x or more drinks on one occasion? Never 09/20/2021 Estimated Date of Delivery Comme nts Yes 02/15/2025 Based on last me nstrual period of 05/11/2024 Sex and Gender Information Value Date Recorded Sex Assigned at Not on file Legal Sex Female 10:09 AM CDT Gender Identity Not on file Sexual Orientation Not on file Last Filed Vital Signs Vital Sign Reading Time Taken Comments Blood Pressure 119/82 10/27/2021 12:28 PM CDT Pulse 69 10/27/2021 12:28 PM CDT Temperature 36.7 C (98.1 F) 09/20/2021 1:30 PM CDT Respiratory Rate 16 10/27/2021 12:28 PM CDT Oxygen Saturation 98% 10/27/2021 12:28 PM CDT Inhaled Oxygen Concentration 21% 09/20/2021 1 1:54 AM CDT Weight 62.1 kg (137 lb) 10/27/2021 12:28 PM CDT Height 167.6 cm (5' 6) 10/27/2021 12:28 PM CDT Body Mass Index 22.11 10/27/2021 12:28 PM CDT Plan of Treatment Health Maintenance Due Date Last Done Comments HIV SCREENING 2004 HEPATITIS C SCREENING 07/20/2007 HEPATITIS B VACCINE (1 of 3 - 19+ 3-dose series) 2008 HPV VACCINE (1 - 3-dose SCDM series) 2016 COVID-19 VACCINE ( season) 2024 04/05/2023, 04/17/2022, 06/16/2021, Additional history exists DEPRESSION SCREENING 06/25/2024 OB-ONE HOUR GLUCOSE 11/09/2024 OB-TDAP CURRENT 11/16/20242022, 11/06/2019, 07/02/2018, Additional history exists OB-RHOGAM INJECTION 11/23/2024 OB-GROUP B STREP SCREEN 01/11/2025 INFLUENZA VACCINE (#1) 2025 4, 04/05/2023, 04/17/2022, Additional history exists PAP with HPV 05/09/2026 05/09/2021, 05/09/2021 DTAP/TDAP/TD VACCINES (4 - Td or Tdap) 11/05/2029 11/06/2019, 07/02/2018, 04/04/2018 ZOSTER VACCINE (1 of 2) 2039 HIB VACCINE Aged Out No longer eligi ble based on patient's age to complete this topic MENINGOCOCCAL (Group B) VACCINE SHARED DECISION-MAKING Aged Out No longer eligible based on patient's age to complete this topic MENINGOCOCCAL GROUPS A/C/Y/W VACCINE Aged Out No longer eligible based on patient's age to complete this topic PNEUMOCOCCAL VACCINE Aged Out No long er eligible based on patient's age to complete this topic Respiratory Syncytial Virus (RSV) Vaccine Pt: or over 60 yrs (No Doses Required) Completed Procedures Procedure Name Priority Date/Time Associated Diagnosis Comments SONOGRAM - COMPLETE Routine 12/30/2024 9:15 AM CDT Encounter for follow-up ultrasound of anatomy (HCC) Vinicio's disease Subclinical hypothyroidism 27 weeks gestation of (HCC) HPV DETECTION HIGH RISK PRANEETH Routine 05/09/2021 12:44 PM FIRMWARE TEST ENGINEER EDDA II (cervical intraepithelial neoplasia II) from Last 3 Months or Most Recently Relevant to Health Maintenance Results * SONOGRAM - COMPLETE (12/30/2024 9:15 AM CDT) Linked Results Indication ======== Encounter for other screening follow-up Incomplete Anatomy Advanced maternal age (AMA), multigravida History ====== OB History 4. Para 3 [id number] 1. live 2017. Gest. age 37 w + 0 d. Weight 2,438 g. Sex of child: male. Details: Vaginal delivery 2. live 2019. Gest. age 38 w + 0 d. Weight 2,920 g. Sex of child: female. Details: Vaginal delivery 3. live 2022. Gest. age 39 w + 0 d. Weight 3,175 g. Details: Vaginal delivery Lab Tests Test Date Result NIPT Low risk, Male (per patient) Maternal Assessment Physical Exam Height 165 cm, 5 ft 5 in. Initial weight 65 kg, 143 lb. Initial BMI 23.80 kg/m Method ====== Transabdominal ultrasound. View: Good view ========= Guidry . Number of fetuses: 1 Dating ====== Date Details Gest. age OSCAR LMP 05/11/2024 33 w + 2 d 02/15/2025 U/S 12/30/2024 based upon AC, BPD, Femur, HC 33 w + 6 d 02/11/2025 Assigned dating based on the LMP, selected on 09/29/2024 33 w + 2 d 02/15/2025 General Evaluation Cardiac activity present. FHR 166 bpm. Presentation: cephalic Placenta: Placental site: posterior Amniotic fluid: Amount of AF: normal. MVP 3.7 cm. JESSICA 12.3 cm. Q1 3.7 cm, Q2 3.6 cm, Q3 1.8 cm, Q4 3.2 cm Biometry BPD 83.7 mm 33w 5d 57% Hadlock HC 308.4 mm 34w 3d 42% Hadlock AC 290.8 mm 33w 1d 45% Hadlock Femur 65.6 mm 33w 6d 53% Hadlock Humerus 59.1 mm 34w 2d 85% Arleth HC / AC 1.06 Weight Calculation: EFW 2,206 g 48% Hadlock EFW (lb,oz) 4 lb 14 oz EFW by Hadlock ([id number]) appropriate Growth Overview Exam date GA BPD (mm) HC (mm) AC (mm) FL (mm) HL (mm) EFW (g) 09/29/2024 20w 1d 46.2 42% 176.5 42% 157.2 68% 33.1 50% 31.5 67% 362 68% 12/30/2024 33w 2d 83.7 57% 308.4 42% 290.8 45% 65.6 53% 59.1 85% 2206 48% Anatomy The following structures appear normal: Head / Neck Cranium. Heart / Thorax 4-chamber view. RVOT view. 9-[id number] view. Abdomen Stomach. Kidneys. Bladder. Spine Cervical spine. Thoracic spine. Lumbar spine. Sacral spine. The following structures were documented previously: Head / Neck Lateral ventricles. Choroid plexus. Midline falx. Cavum septi pellucidi. Cerebellum. Cisterna magna. Face Lips. Profile. Nose. Orbits. Heart / Thorax LVOT view. 3-vessel view. Abdomen Cord insertion. Genitals. Extremities / Skeleton Arms. Hands. Legs. Feet. sex: male. Impression ========= Single, live, intrauterine at 33w2d The size is AGA The amniotic fluid volume is normal No major malformations were seen within the limitations of ultrasound Follow-up ======== Ultrasound in 4 weeks for size assessment Coding ====== Procedures [id number]: US Preg Uterus Follow Up [facility] SuperTurbo PACS Anatomical Region Laterality Modality Other 12/30/2024 9:15 AM CDT He Salazar MD [facility] ORDERABLES Edited Result - Final * (ABNORMAL) HPV DETECTION HIGH RISK PRANEETH (05/09/2021 12:44 PM FIRMWARE TEST ENGINEER) High Risk Human Papilloma Result Detected( A) Not detected 05/11/2021 1:54 PM FIRMWARE TEST ENGINEER [facility] High Risk Human Papilloma Interp 05/11/2021 1:54 PM FIRMWARE TEST ENGINEER [facility] Comment:High Risk Human Berto lloma Virus - Detected Pathology/Cytolo gy MISCELLANEOUS SAMPLES / Unknown 05/09/2021 12:44 PM FIRMWARE TEST ENGINEER 05/10/2021 12:48 PM FIRMWARE TEST ENGINEER Narrative [facility] - 05/11/2021 1:54 PM FIRMWARE TEST ENGINEER Nucleic acid isolated from the specimen was analyzed with a nucleic acid amplification test (FDA approved Gen-Probe HPV Assay) to detect high risk human papilloma virus (Types: 16, 18, 31, 33, 35, 39, 45, 51, 52, 56, 58, 59, 66, and 68). The reference range is Not Detected. Comment: These test results should not be used as the sole basis for clinical assessment and treatment of patients. These results should always be correlated with other available data (cytology, histology, and clinical information). us Loly Nguyễn MD LAB - MICROBIOLOGY ORDERABLES Fi nal Result [facility] [address] [place] [address], [facility] [phone] from Last 3 Months or Most Recently Relevant to Health Maintenance Insurance [employer]
--- OUTSIDE RECORDS SUMMARY | 2025-02-01 14:14 | XMS_ITS | Encounter Summary ---
Author Organization [facility] Address [address] [place] [address] Care Team Providers Care Hoop Punch And Coiler Operator Name Role Phone Unavailable Primary Care Provider Unavailabl e Encounter Details Date Type Department Care Team (Late st Contact Info) Description 08/10/2021 Telephone [facility] [address] [place] [address] Taylor Cruz MD [address] [phone] Social History Tobacco Use Types Packs/Day Years Used Date Smoking Tobacco: Never Smokeless Tobacco: Never Alcohol Use Standard Drinks/Week Comments Yes 0 (1 standard drink = 0.6 oz pur e alcohol) Comments Unknown Sex and Gender Information Value Date Recorded Sex Assigned at Not on file Legal Sex Female 10:09 AM CDT Gender Identity Not on file Sexual Orientation Not on file documented as of this encounter Plan of Treatment Not on file documented as of this encounter Visit Diagnoses Not on filedocumented in this encounter
--- OUTSIDE RECORDS SUMMARY | 2025-02-01 14:14 | XMS_ITS | Clinical Summary ---
Author Organization [facility] Address [address] [place] [phone] Care Team Providers Care Wastewater Design Engineer Name Role Phone Loly Fish MD Primary Care Provider He Leung MD Unavailable [phone] Guanako Mckay MD Unavailable [phone] Taylor Cruz MD Unavailable [phone] Allergies No known active allergies Medications no115/iron/foli c acid ( 19 ORAL) Take 1 capsule by mouth daily Active levothyroxine (SYNTHROID) 50 mcg tablet Take 1 tablet (50 mcg total) by mouth daily 02/07/2021 Active lysine 500 mg tablet 1 tablet (500 mg total) every other day Active ferrous sulfate 325 mg (65 mg of elemental iron) tabletIndicatio ns:Iron Deficiency Anemia Take 1 tablet (325 mg total) by mouth once a week Once or twice a week Active Active Problems Problem Noted Date Diagnosed Date 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 Diagnosed in 2019 Goiter 10/09/2022 Cervical intraepithelial neoplasia grade 2 01/17 Overview (11/30/2023): Plan 6 mo colpo + pap 06/14 taj I at 12 taj 1-2 at 4-6 oclock 05/15 lsil pos hpv neg 16/18/45 03/08/21 cervical bx: benign ECC benign 01/12 cervical biopsy scant endocervical cells, nondiagnostic, ECC neg 10/13/20 cervical biopsy TAJ II, ECC minute fragment of dysplastic epithelium, favor high grade dysplasia 09/12 lsil pos hpv 01/10 cervical biopsy 12,6 oclock TAJ I, Ecc: benign 10/11 cervical biopsy: small focus of lsil, ECC benign 09/10 pap: lsil cannot exclude a high grade lesion 10/10 nilm 03/11 ascus neg hpv Cervical high risk human pap illomavirus (HPV) DNA test positive 10/20/2020 Subclinical hypothyroidism 01/29/2019 Resolved Problems Problem Noted Date Diagnosed Date Resolved Date Hypothyroidism in 03/24/2022 11/30/2023 LGSIL on Pap smear of cervix 10/01/2018 11/30/2023 Hair loss 03/20/2017 11/30/2023 Immunizations Immunization Administration Dates Next Due COVID-19 mRNA (Tripping) 0.3 m L (30 mcg) vaccine (12 years and up) 04/05/2023 Influenza, Quadrivalent, Tabatha l Culture-based MDCK, Preservative Free, Antibiotic Free, Intramuscular 04/05/2023,03/20/2020 Influenza, Quadrivalent, Spl it, Preservative Free, Intramuscular 04/17/2022,04/07/2021,03/21/2018 Influenza, Trivalent, IM (MDV) 06/02/2019 [employer] SARS-CoV-2 Monovalent Vaccination (12+ Yrs) PURPLE 06/16/2021,10/28/2020,10/07/2020 [employer] Sars-Cov-2 Bivalent V accination (12+ YRS) 04/17/2022 Tdap 07/21/2022, 0,07/02/2018,04/04 Surgical History Surgery Date Site/Laterality Comments TONSILLECTOMY WISDOM TOOTH EXTRACTION Medical History Medical History Date Comments Vinicio's thyroiditis Hypothyroid HPV (human papilloma virus) infection Cervical high risk human papillomavirus (HPV) DN A test positive 10/20/2020 LGSIL on Pap smear of cervix 10/01/2018 Family History Medical History Relation Name Comments No Known Problems Brother No Known Problems Father Brain Aneurysm Maternal Grandfather Breast cancer Maternal Grandmother No Known Problems Mother Heart disease Paternal Grandfather Breast cancer Paternal Grandmother Anxiety disorder Sister Depression Sister Colon cancer Neg Hx Ovarian cancer Neg Hx Uterine cancer Neg Hx Relation Name Status Comments Brother Father Maternal Grandfather Maternal Grandmother Mother Paternal Grandfather Paternal Grandmother Sister Social History Tobacco Use Types Packs/Day Years Used Date Smoking Tobacco: Never Tobacco Cessation:Counseling Given: Not Answered PHQ-2 Answer Date Recorded PHQ-2 Total Score (If total score is 3 or more points, staff should administer the PHQ-9) 0 11/30/2023 Personal Safety Answer Date Recorded Getting School Help Needed Not on file 08/22 Comments No Sex and Gender Information Value Date Recorded Sex Assigned at Not on file Legal Sex Unknown 07/14/2022 2:31 PM GROCERY PACKER Gender Identity Not on file Sexual Orientation Not on file Obstetrics History Para Term AB IAB SAB Ectopic Multiple Livin g Live Births 2 2 2 2 2 Date Outcome GA Total Labor Labor/2nd/3rd Weight Sex Type Anes PTL Rosario A1 A5 Name Clin 018 Term 37w 6d 2.438 kg (5 lb 6 oz) M Vag-S pont Epidur al N Livin g 8 9 LAS Delivery Location:[facility] 020 Term 38w 3d 2.92 kg (6 lb 7 oz) F Vag-S pont Epidur al N Livin g Ally German M.D. Delivery Location: Last Filed Vital Signs Vital Sign Reading Time Taken Comments Blood Pressure 120/80 11/30/2023 10:23 AM CDT Pulse 78 11/30/2023 10:23 AM CDT Temperature - - Respiratory Rate - - Oxygen Saturation - - Inhaled Oxygen Concentration - - Weight 66.2 kg (146 lb) 11/30/2023 10:23 AM CDT Height 169.5 cm (5' 6.73) 11/30/2023 10:23 AM C DT Body Mass Index 23.05 11/30/2023 10:23 AM CDT Plan of Treatment Health Maintenance Due Date Last Done Comments Hepatitis C Screening 1989 Varicella Vaccines (1 of 2 - 13+ 2-dose series) 2002 Hepatitis B Screening 2007 HPV Vaccines (1 - 3-dose SCDM series) 2016 Covid-19 Vaccine ( season) 2024 04/05/2023, 04/17/2022, 06/16/2021, Additional history exists Depression Screening 11/29/2024 11/30/2023 Regular Well Visit/Exam 18-64 11/29/2024 11/30/2023 Influenza Vaccine (#1) 2025 , 04/17/2022, 04/07/2021, Additional history exists DTaP/Tdap/Td Vaccine (5 - Td or Tdap) 07/21/2032 07/21/2022, 11/06/2019, 07/02/2018, Additional history exists Pneumococcal vaccine <65 Aged Out No longer eligible based on patient's age to complete this topic Insurance [place] CHO[place] ACCESS CHOICE Care Teams Wastewater Design Engineer Relationship Specialty Start Date End Date Loly Fish MD PCP - General Family Medicine 11/30/23 He Leung MD [address] [facility] [address] [place], [place] [id number] Referring Physician Obstetrics and Gynecology 11/30/23 Guanako Mckay MD [address] [facility] [address] [place], [place] [id number] Consulting Physician Endocrinology 11/30/23 Taylor Cruz MD [address] [place] [address] Referring Physician General Surgery 11/30/23
--- NOTE | 2025-02-01 14:37 | PC.NURSE ---
Pt here to rule out ROM. Noticed leaking today at 0400. ROM Plus positive. Explained to pt that she will be admitted, which includes starting an IV, drawing labs, and possibly starting pitocin. I asked if I could check her cervix, and she did not want me to. Pt stated she did not an IV or pitocin, and was hoping she could go home and labor there for as long as possible before coming back. She asked how checking her cervix would affect the POC and I explained to her that if she had made significant change since her exam in Dr. Leung's office on Sunday, she could likely continue laboring on her own vs. if she had not made change, she would need pitocin started. She agreed to let me check her cervix. I called Dr. Spears at 1421 to notify him of ROM Plus results, SVE, contractions, and pts desire to go home and avoid an IV. Dr. Spears stated she could wait 3-4 hours to start pitocin, but she needs to get an IV now. I had another discussion with pt and her about Dr. Spears's orders. She said she is okay with waiting 3-4 hours to start pitocin, but still does not want an IV. I explained the need for an IV in the event of an emergency, but she still declined, and said she would be okay with starting an IV when we start pitocin. I updated Dr. Spears at 1434. He said he is okay with waiting until starting pitocin to place an IV, but if we reach the point of being 18 hours past time of ROM, she will have no choice.
--- NOTE | 2025-02-01 15:04 | LDADM ---
This patient, Gerson Rich, was admitted to Labor/Delivery/Recovery 106 on 02/01/25 at 13:45. Plans for labor, pain management and were discussed with patient. Patient/family oriented to hospital policies and general routines including ID bracelet, bed and alarms, visiting hours, pain management, procedures, bathroom and other care routines, personal items, smoking policy, room service/diet and guest tray routines, security routines, and visiting hours. Patient/Family are encouraged to report perceived risks to care and to ask questions if they do not understand what they are told or what they should do. See OBIX for further documentation.
[2025-02-01 15:27] LABS: OBXCEM ROM Plus Positive (Negative)
--- NOTE | 2025-02-01 19:24 | WPDANESEPP ---
Anes - Eval Pre Procedure Procedure: Labor epidural Date/Time: 02/01/25 19:24 Surgeon: Regan Preop Diagnosis: Abdominal pain with contractions Pre Op Diagnosis: ruptured membranes Patient Data Age: 34 Gender: F Height: 1.68 m Weight: 78 kg Last Vital Signs Temp 97.5 F L 02/01/25 17:59 Pulse 100 02/01/25 17:19 BP 129/81 02/01/25 17:19 O2 Del Method Room Air 02/01/25 15:03 Allergies Allergy/AdvReac Type Severity Reaction Status Date / Time No Known Allergies Allergy Verified 02/01/25 15:12 Home Medications ?Medication ?Instructions ?Recorded ?Confirmed ?Type levothyroxine 50 mcg tablet See Rx Instructions .Route 06/04/24 02/01/25 Rx .COMPLEX #90 tabs docosahexaenoic acid 200 mg mg PO 07/11/24 01/28/25 History capsule ( DHA) Laboratory Tests 02/01/25 13:57 Membranes Rupture Rom plus positive (Negative) : gestational age HCG: positive Patient hx anesthesia problems: none Family hx anesthesia problems: none Results Review: All pre-operative results and documents have been reviewed as part of the pre-operative evaluation. 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 Hypothyroid Surgical History Surgical History Hx of LASIK History of colposcopy History of tonsillectomy Family History Family History Sibling Depression Anxiety Mother Disorder of thyroid Social History Social History Smoking status: Never smoker Alcohol intake: former Alcohol use details: social Substance use: never Lack of Transportation: No Lack of Food: Never True Current Housing: I Have Housing Concerned About Future Housing: No Difficulty Paying Gas/Electric Bills: No Difficulty Paying for Meds: No Currently Unemployed: No Education: Bachelor's Degree Difficulty w/ Childcare or Family Care: No Living arrangements: with family Gender identity (if verbalized by the patient): Female Sexual Orientation (if Verbalized by the Patient): Straight or Heterosexual Spiritual care concerns: No Exam Day of Procedure 02/01/25 19:24 Patient weight: overweight Airway: Mallampati scale class II Neurological: alert and oriented
--- NOTE | 2025-02-01 20:01 | P.HP_ITS ---
H&P: HPI History of Present Illness Date/Time: 02/01/25 20:01 Chief Complaint: Intrauterine at term spontaneous rupture of membranes Narrative: 34 yo who presents at 38w0d who presents with spontaneous rupture of membranes. Patient her water broke at 4:00 a.m. patient is not having regular contractions. She denies any vaginal bleeding. is complicated by hypothyroidism and advanced maternal age. Review of Systems Cardiovascular: Cardiovascular: Denies chest pain, Denies leg edema, Denies palpitations, Denies dyspnea and Denies dyspnea on exertion Respiratory: Respiratory: Denies cough, Denies dyspnea and Denies dyspnea on exertion Gastrointestinal: Gastrointestinal: Denies abdominal pain, Denies constipation, Denies diarrhea, Denies nausea and Denies vomiting Genitourinary: Genitourinary: Denies hematuria, Denies urinary frequency, Denies dysuria, Denies pelvic pain, Denies urinary incontinence and Denies v aginal discharge Neurologic: Reports system reviewed and no additional complaints, except as documented Psychiatric: Psychiatric: Reports no additional psychiatric complaints Endocrine: Endocrine: Denies palpitations PMFSH Past Medical History Medical History Overweight Pain during labor 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 Hypothyroid Surgical History Surgical History Hx of LASIK History of colposcopy History of tonsillectomy Family History Family History Sibling Depression Anxiety Mother Disorder of thyroid Social History Social History Smoking status: Never smoker Alcohol intake: former Alcohol use details: social Substance use: never Lack of Transportation: No Lack of Food: Never True Current Housing: I Have Housing Concerned About Future Housing: No Difficulty Paying Gas/Electric Bills: No Difficulty Paying for Meds: No Currently Unemployed: No Education: Bachelor's Degree Difficulty w/ Childcare or Family Care: No Living arrangements: with family Gender identity (if verbalized by the patient): Female Sexual Orientation (if Verbalized by the Patient): Straight or Heterosexual Spiritual care concerns: No Meds Home Medications and Allergies Home Medications ?Medication ?Instructions ?Recorded ?Confirmed ?Type levothyroxine 50 mcg tablet See Rx Instructions .Route 06/04/24 02/01/25 Rx .COMPLEX #90 tabs docosahexaenoic acid 200 mg mg PO 07/11/24 01/28/25 History capsule ( DHA) Allergies Allergy/AdvReac Type Severity Reaction Status Date / Time No Known Allergies Allergy Verified 02/01/25 15:12 Vital Signs Vital Signs - 24 hr 02/01/25 13:59 02/01/25 14:00 02/01/25 14:59 Temperature 97.4 F L Pulse Rate 92 101 H Blood Pressure 123/76 134/92 H Oxygen Delivery 02/01/25 15:03 02/01/25 16:00 02/01/25 16:04 Temperature 97.5 F L Pulse Rate 93 Blood Pressure 145/75 H Oxygen Delivery Room Air 02/01/25 17:19 02/01/25 17:59 Temperature 97.5 F L Pulse Rate 100 Blood Pressure 129/81 Oxygen Delivery Exam Const: General: no acute distress Eyes: EOM: EOMs intact bilaterally Neck: Neck: supple Thyroid: thyroid normal Chest: Breast/axilla inspection: normal inspection of the breasts Breast/axilla palpation: normal palpation of the breasts, normal palpation of the axillae and no axillary lymphadenopathy Resp: Effort & Inspection: normal respiratory effort Auscultation: clear to auscultation bilaterally Cardio: Rate: regular rate Rhythm: regular rhythm GI: Inspection: non-distended and other (Gravid) GI Palp: Yes Soft to palpation, No Tenderness to palpation present (GI) and No Guarding due to palpation present (GI) Auscultation: normal bowel sounds : Speculum Exam - Vagina: No vaginal bleeding OB/external & speculum: external exam normal; No vaginal bleeding Skin: General skin exam: normal color and no rashes or lesions noted Neuro: Cognition (Neuro): normal cognition Speech: normal speech Extrem: General: normal to inspection Psych: Mental Status: mental status grossly normal Affect: normal affect Assessment and Plan Assessment and plan (1) Normal intrauterine in third trimester: Code(s): Z34.93 - Encounter for supervision of normal , unspecified, third trimester Status: Acute Assessment and Plan: 34 yo who presents at 38 weeks 0 days Rh positive GBS negative labs/records reviewed Admit to L&D Routine admission orders Continuous external monitoring Will augment as indicated (2) Hypothyroidism affecting : Code(s): O99.280 - Endocrine, nutritional and metabolic diseases complicating , unspecified trimester; E03.9 - Hypothyroidism, unspecified Status: Acute Assessment and Plan: Last TSH within normal limits Currently on levothyroxine 50 mcg (3) Advanced maternal age (AMA) in : Status: Acute (4) Spontaneous rupture of membranes: Status: Acute Assessment and Plan: Reports rupture of membranes at 4:00 a.m. Will administer antibiotics for prolonged rupture of membranes at 6:00 p.m. Will augment if no cervical change
--- NOTE | 2025-02-01 20:07 | P.PNOB_ITS ---
Pain Control Date/time seen: 02/01/25 20:07 Pain control: tolerating well Pelvic Exam Dilation (cm): 3 Effacement (%): 70 station: -3 Amniotic membrane status: Ruptured Comments: AROM forebag for clear fluid. Placenta was noted to be anterior on US. IUPC was placed posteriorly Contractions Monitor mode: External Contraction frequency: 6 Contraction pattern: Regular Contraction intensity: Mild Status status: Category l Assessment and Plan Comments: Patient wishes to avoid Pitocin. She is wanting to avoid all interventions if possible. She does not want an epidural. Patient has had an epidural and pitocin in previous . Her wish was to have a natural delivery. Patient is also refusing IV access and admission blood work. Reviewed plan of care with patient. Patient has been ruptured since 4:00 a.m.. Discussed increased risk of ascending infection and chorioamnionitis with prolonged membrane rupture. Discussed associated risk of heart tone intolerance to labor and infectious environment, increased risk of hypo ischemic cerebral incidence to the with stress intolerant to labor, increased risk for , and increased risk of and maternal morbidity/mortality. Discussed that patient is not currently in active labor. Discussed that her current contractions are inadequate to cause cervical change. Recommended starting pitocin, patient refused. Recommended placing IUPC to evaluate [place] units and adequate strength of contractions. Father of the baby does not want IUPC placed as he does not want increased risk of infection. Discussed that objective data measuring [place] units would tell us if the contractions were adequate enough to continue to avoid pitocin. Discussed the risk and benefit ratio of no intervention verus labor augmentation. Discussed with couple that I was not comfortable with providing no interventions given her ruptured membrane status and no progress in labor. Discussed rupture of mentioned forebag on exam. Discussed that this may allow the head to descend into the pelvis and apply more pressure to the cervix. This may induce stronger contractions to progress labor. Recommended starting pitocin if we have not had cervical change by the 18 hour rupture point or if adequate contractions do not develop based on [place] units. Discussed that patient will need IV access to administer antibiotics.
[2025-02-01] MEDS: LACTATED RINGERS 1,000 ML 125 ML IV CONT (22:00)
[2025-02-01] MEDS: AMPICILLIN SODIUM 2 GM in SODIUM CHLORIDE 0.9% IV 100 ML 200 ML IVPB (22:10)
[2025-02-01 22:40] LABS: Hematocrit 33.9 % (37.0-47.0); Hemoglobin 12.0 g/dL (12.0-15.0); Immature Granulocyte Percent A 0.7 % (0-0.5); Lymphocytes Absolute Auto 2.11 K/mm3 (0.9-3.2); Mean Corpuscular HGB Conc 35.4 g/dl (32-36); Mean Corpuscular Hemoglobin 31.6 pg (26-34); Mean Corpuscular Volume 89.2 fl (80-100); Nucleated Red Blood Cells Absolute Auto 0.000 K/mm3 (0.0-0.012); Nucleated Red Blood Cells Perc 0.0 % (0.0-0.2); Platelet Count Result 222 k/mm3 (150-375); Red Blood Count 3.80 M/mm3 (4.2-5.4); White Blood Count 11.8 K/mm3 (4.5-10.0)
[2025-02-01] MEDS: OXYTOCIN 30 UNITS/NS 500 ML 30 UNITS/500 ML BAG 999 UNITS IV CONT (23:26)
[2025-02-01] MEDS: IBUPROFEN 600 MG TABLET PO (23:40)
--- NOTE | 2025-02-01 23:44 | PM.OBPRVD ---
OB - Vaginal Delivery Note Procedure Delivery date: 02/01/25 Delivery augmentation: Rupture of Membranes Delivery monitor: External FHT, External Uterine and Internal Uterine Route of delivery: Laceration Description: Labial (bilateral) Delivery repair: vicryl (3-0 vircyl) Specimen: Yes (cord blood) Quantitative Blood Loss (ml): 95 Anesthesia type: Local (1% lidocaine) Disposition: PACU Complications: None Narrative: 34 y/o at 38 weeks gestation who presented to the hospital after a gush of fluid. SROM diagnosed. AROM of the forebag yielded clear fluid. At this point I took over as the covering physician - Dr. Spears phoned me with detailed check out. The patient's contractions increased. Her labor progressed and her cervix dilated completely. She pushed with good effort and delivered the 's head to the perineum. A loose nuchal cord x 2 was splinted and the body delivered. The cord was reduced, and the nose and mouth were bulb suctioned. After a delay, the cord was clamped and cut. The was handed off the field. Cord blood was collected. The placenta delivered spontaneously and was grossly normal in appearance. The usual 3 vessel cord was noted. Bilateral labial lacerations were noted. The left labial laceration was minimal and did not require repair. Two small bleeding lacerations on the right side were infiltrated with a total of 4 mL 1% lidocaine, then reapproximated using figure of eight sutures of 3 0 Vicryl in interrupted fashion. Excellent hemostasis resulted as did excellent reapproximation of the normal anatomy. Needle and instrument counts were correct. The patient was taken to recovery room in stable condition. The infant went to the nursery in stable condition. I was present and scrubbed for the entire delivery. [place] Baby Date of : 02/01/25 Time of : 23:23 Gestational Age by Date: 38 Infant gender: Male presentation: vertex position: Left Occiput Anterior Placenta delivery description: Spontaneous Cord Vessel Description: 3 Vessels, Nuchal Cord (x2) and Delayed Cord Clamping score one minute: 9 score five minutes: 9
[2025-02-01] MEDS: OXYTOCIN 30 UNITS/NS 500 ML 30 UNITS/500 ML BAG 125 UNITS IV CONT (23:54)
--- NOTE | 2025-02-01 23:57 | PM.OBDSVD ---
DS: Admitting Diagnosis Discharge Date 02/03/25 Admitting Diagnosis IUP at 38 weeks SROM DS: Discharge Diagnosis Discharge Diagnosis (1) (normal spontaneous vaginal delivery): Code(s): O80 - Encounter for full-term uncomplicated delivery Status: Acute OB - DS: Summary OB Procedures : None OB Procedures Intrapartum: Spontaneous Vag Delivery OB Procedures: : None Peripartum Data Laceration Description: Labial (bilateral) Time Spent with Patient Time attestation: Total time spent providing and/or coordinating discharge services: DS: Data Data Completed and Pending Labs on day of discharge: Labs from last 24 hours 02/01/25 02/01/25 22:24 13:57 WBC 11.8 H RBC 3.80 L Hgb 12.0 Hct 33.9 L MCV 89.2 MCH 31.6 MCHC 35.4 RDW 13.2 Plt Count 222 MPV 10.0 Immature Gran % (Auto) 0.7 H Neut % (Auto) 74.1 H Lymph % (Auto) 17.9 L [place] % (Auto) 6.5 Eos % (Auto) 0.6 Baso % (Auto) 0.2 Lymph # (Auto) 2.11 [place] # (Auto) 0.8 H Eos # (Auto) 0.1 Baso # (Auto) 0.0 Abs Immat Gran (auto) 0.08 H Absolute Neuts (auto) 8.8 H Absolute Nucleated RBC 0.000 Nucleated RBC % 0.0 Membranes Rupture Rom plus positive Discharge Plan Discharge Attending physician on discharge: He Leung Consulting providers: [place] [place] [facility] Discharging Clinician: He Leung Anticipated Discharge Date/Time: 02/03/25 08:50 Patient Disposition: Home Activity: pelvic rest Diet: regular Discharge Instructions: Education: Mom and Baby Guide Given to: Mother Follow-Up: Call your delivering provider's office for an appointment to be seen in: 1 Week BREAST CARE: * Wear a snug supportive bra. * For engorgement discomfort: Breast Feeding: * Apply warm moist washcloths * Express milk as needed to relieve engorgement * Wear loose clothing Bottle Feeding: * May apply ice packs * For sore nipples: * Identify correct latch-on * Apply warm moist washcloths before and after nursing * Air dry nipples after nursing * May apply Lansinoh cream to nipples ABDOMINAL INCISION: (if applicable) * Allow incision to air dry * Do NOT use lotions for powders on your incision * When showering, allow soap and water to run over the incision, but do not wash incision EPISIOTOMY/PERINEAL CARE: * Until bleeding stops, use your eliel bottle after urinating * Change your pad frequently throughout the day * You may take sitz baths several times a day (fill your bathtub with warm water and soak for 20 minutes.) Do NOT bathe in the water * No tub baths until seen by your physician - You may shower ACTIVITY: * Rest as much as possible. * Do not exercise or lift anything heavier than your baby (such as laundry or other children.) * Avoid stairs or driving as much as possible. * Do not put anything into the vagina. No douching, tampons, or sexual activity until seen by physician. NOTIFY PHYSICIAN IF YOU HAVE ANY QUESTIONS OR IF ANY OF THE FOLLOWING SYMPTOMS OCCUR: * If your episiotomy or incision becomes red, swollen, or more painful than what you have experienced in the hospital. * If your vaginal bleeding becomes foul smelling. * If your vaginal bleeding becomes more heavy than a period or if your bleeding changes from pink to bright red. However, you may pass an occasional walnut-sized clot once or twice for the first week . * If you experience a sharp, shooting pain in you calves. * If you discover a hard, reddened area on your breast or if you experience flu-like symptoms. DIET: * Eat regular, well-balanced meals. * Drink plenty of fluids daily. If , drink to thirst. Call or return if temperature above 100.4? F, increased abdominal pain, increased vaginal bleeding or any new problems. Patient Language: Urdu Stand Alone Forms: General Discharge Information Follow-up/Referrals: He Leung MD [Physician] - 6 Weeks Discharge Medications: Continued DHA 200 mg capsule PO Discontinued levothyroxine 50 mcg tablet See Rx Instructions .ROUTE .COMPLEX Qty: 90 3RF Dose Instruction: TAKE 1 TABLET BY MOUTH EVERY DAY Rx Instructions: TAKE 1 TABLET BY MOUTH EVERY DAY Date of admission: 02/01/25 13:45 Primary Care Provider: UNKNOWN,DOCTOR Admitting Provider: Adarsh Spears Attending physician on admission: Adarsh Spears Condition: Stable
[2025-02-02] VITALS (8 sets, daily range): BP systolic 112–122; BP diastolic 61–74; PULSE 65–108; RESP 16–36; TEMP 36.6–37.2; O2SAT 99–100
[2025-02-02 00:17] LABS: Syphilis IgG/IgM Antibody Non-Reactive (Nonreactive)
--- NOTE | 2025-02-02 02:13 | OBPPTRN ---
Addendum entered by Sheyla Mackey 02/02/25 02:30: at 0148 Original Note: Patient transferred to post room #113 via wheelchair. Father of baby present. Oriented to unit, room, information board, rooming in, admission packet and security measures. Patient verbalizes understanding.
[2025-02-02] MEDS: WITCH HAZEL 40 PADS 1 PAD TOPICAL (04:04)
[2025-02-02] MEDS: BENZOCAINE 20% AER SPR (*SP) 56 GM CAN 1 SPRAY TOPICAL (04:04)
[2025-02-02] MEDS: ACETAMINOPHEN 325 MG TABLET 650 MG PO (04:37)
[2025-02-02 04:48] LABS: Hematocrit 33.6 % (37.0-47.0); Hemoglobin 11.5 g/dL (12.0-15.0)
[2025-02-02] MEDS: LEVOTHYROXINE SODIUM 50 MCG TABLET PO (06:42)
--- NOTE | 2025-02-02 08:58 | P.PNOB_ITS ---
OB - PN: Subj Subjective Date/time seen: 02/02/25 08:58 Narrative: Pain OK. Would like circumcision for son. OB - PN: Obj Data Labs 02/02/25 04:34 Labs: Laboratory Results - last 24 hr 02/01/25 02/01/25 02/02/25 13:57 22:24 04:34 WBC 11.8 H RBC 3.80 L Hgb 12.0 11.5 L Hct 33.9 L 33.6 L MCV 89.2 MCH 31.6 MCHC 35.4 RDW 13.2 Plt Count 222 MPV 10.0 Immature Gran % (Auto) 0.7 H Neut % (Auto) 74.1 H Lymph % (Auto) 17.9 L [place] % (Auto) 6.5 Eos % (Auto) 0.6 Baso % (Auto) 0.2 Lymph # (Auto) 2.11 [place] # (Auto) 0.8 H Eos # (Auto) 0.1 Baso # (Auto) 0.0 Abs Immat Gran (auto) 0.08 H Absolute Neuts (auto) 8.8 H Absolute Nucleated RBC 0.000 Nucleated RBC % 0.0 Membranes Rupture Rom plus positive Syphilis IgG/IgM Ab Non-reactive Blood Type O Positive Antibody Screen Negative OB - PN A/P Plan day: 1 Comments: A: PPD#1, doing well. P: Routine care. Reviewed circ. Exam 2 Psych: Other: AVSS ABD soft, nontender, fundus firm EXT nontender
[2025-02-02] MEDS: IBUPROFEN 600 MG TABLET PO ×2 (12:43→21:53)
[2025-02-03 00:20] VITALS: BP 102/54; PULSE 76; RESP 16; TEMP 36.6; O2SAT 97
[2025-02-03] MEDS: DOCUSATE SODIUM 100 MG CAPSULE PO (05:32)
[2025-02-03] MEDS: IBUPROFEN 600 MG TABLET PO (05:32)
[2025-02-03] MEDS: LEVOTHYROXINE SODIUM 50 MCG TABLET PO (06:46)
--- NOTE | 2025-02-03 08:47 | PM.OBPNVD ---
OB - PN: Subj Subjective Date/time seen: 02/03/25 08:47 Interval history: doing well Patient comments: pain well controlled, tolerating diet and other (Decreasing lochia.) [place] baby status: doing well and nursing well feeding status: exclusively breast feeding OB - PN: Obj Data Labs 02/02/25 04:34 OB - PN A/P Assessment and Plan (1) (normal spontaneous vaginal delivery): Code(s): O80 - Encounter for full-term uncomplicated delivery Status: Acute Assessment and Plan: Doing well. Discharge to home. Plan day: 1 Plan: routine care Comments: Patient doing well. Time Spent With Patient Time: Total time spent is greater than 50% in coordination of care (as documented) at patient's floor/unit and/or counseling patient: Exam Psych: Affect: normal affect Other: Abd: fundus firm below umbilicus, nontender Perineum: healing Ext: nontender
[2025-02-03 09:00] VITALS: BP 129/71; PULSE 89; RESP 18; TEMP 36.3; O2SAT 100
--- NOTE | 2025-02-03 09:01 | PC.NURSE ---
Introductions were made, then consulted with patient to assess needs related to . Mother led the conversation with her?plans to feed?her infant and the?experience so far. Mother verbalizes she is able to independently latch with appropriate positioning and alignment. She denies any nipple discomfort and is responsively . Mother states that she is currently using the nipple shield about 50% of the time when is nursing. She is familiar with using a nipple shield from her previous children who each required a nipple shield for a short time. Reviewed good handwashing and the importance of cleaning the nipple shield after each use. Discussed with mom the nipple shield precautions, possible complications associated with the risks and benefits. Infant is currently meeting outcomes for weight, output, jaundice, blood sugar and feeding frequencies of 8-12 times in 24 hours. Mother declines any additional assistance or education at this time. Mother is encouraged to call for assistance if her infant doesn?t latch, pain with latching, questions or concerns.
== END 2025-02-03 11:12 | disposition home or self-care (01) | DRG 807 ==
LOC: ANHLDR 23:59 → ANHOB2 02-03 08:50 → ANHLDR 02-04 10:58 → ANHOB2 02-04 10:58 → ANHOBPP 02-04 10:58
PROVIDERS: Obstetrics & Gynecology; Admitting Provider Student in an Organized Health Care Education/Training Program; Visit Provider Obstetrics & Gynecology
DX: O42.02 Full-term premature rupture of membranes, onset of labor within 24 hours of rupture (principal); Z37.0 Single live birth; O99.284 Endocrine, nutritional and metabolic diseases complicating childbirth; Z3A.38 38 weeks gestation of pregnancy; E03.9 Hypothyroidism, unspecified; O70.0 First degree perineal laceration during delivery; O69.81X0 Labor and delivery complicated by cord around neck, without compression, not applicable or unspecified
CPT/HCPCS: 36415; 84112; 85014; 85018; 85025; 86593; 86850; 86900; 86901; A9270; J0290; J2590; J7120